=== PATIENT | male | born 1935 | race Caucasian/White ===

== ENCOUNTER 2025-06-28 11:34 | Outpatient (CLI) | payer MEDICARE ==
[~2025-06-28 11:34] MED LIST: ATOR40TA PO; CLOP75TA34 PO
--- NOTE | 2025-06-28 13:18 | VASCULAR REPORT ---
Carotid Duplex Clinical History: Headaches Comparison: None Technique: Duplex Doppler evaluation of the extracranial carotid and vertebral arteries including color Doppler and spectral/pulsed waveform analysis was performed. Findings: RIGHT SIDE: The peak systolic velocities are 98 cm/s in the CCA, 77 cm/s in the ICA. The ICA/CCA ratio is 0.78. The external carotid artery is patent with peak systolic velocity of 85 cm/s proximally. The subclavian artery is patent with peak systolic velocity of 69 cm/s. There is appropriate antegrade flow in the right vertebral artery. LEFT SIDE: The peak systolic velocities are 82 cm/s in the CCA, 75 cm/s in the ICA. The ICA/CCA ratio is 0.99. The external carotid artery is patent with peak systolic velocity of 75 cm/s proximally. The subclavian artery is patent with peak systolic velocity of 87 cm/s. There is appropriate antegrade flow in the left vertebral artery. IMPRESSION: Less than 50% stenosis of bilateral carotid artery systems. Antegrade flow in bilateral vertebral arteries. Abnormal monophasic waveforms in the left subclavian artery. Multiphasic waveforms in the right subclavian artery. Reference: Radiology 2003; 229:[id number] Normal ICA PSV is <125 cm/sec and no plaque or intimal thickening is visible sonographically addition al criteria include ICA/CCA PSV ratio <2.0 and ICA EDV <40 cm/sec <50% ICA stenosis ICA PSV is <125 cm/sec and plaque or intimal thickening is visible sonographically additional criteria include ICA/CCA PSV ratio <2.0 and ICA EDV <40 cm/sec 50-69% ICA stenosis ICA PSV is 125-230 cm/sec and plaque is visible sonographically additional criter ia include ICA/CCA PSV ratio of 2.0-4.0 and ICA EDV of 40-100 cm/sec 70% ICA stenosis but less than near occlusion ICA PSV is >230 cm/sec and visible plaque and luminal narrowing are seen at de león-scale and color Doppler ultrasound (the higher the Doppler parameters lie above the threshold of 230 cm/sec, the greater the likelihood of severe disease) additional criteria include ICA/CCA PSV ratio >4 and ICA EDV >100 cm/sec
== END 2025-06-28 23:59 | disposition home or self-care (01) ==
LOC: VAS 11:34
PROVIDERS: ATTEND Internal Medicine Cardiovascular Disease
DX: I65.23 Occlusion and stenosis of bilateral carotid arteries (principal); Z03.89 Encounter for observation for other suspected diseases and conditions ruled out
CPT/HCPCS: 93880